=== PATIENT | male | born 1930 | race Caucasian/White ===

== ENCOUNTER 2017-01-10 12:43 | Emergency (ER) | payer BC ==
[~2017-01-10] VITALS: Ht 172.7 cm; Wt 67.9 kg
[~2017-01-10 12:43] MED LIST: AMOX500C3 PO; CLOP1TAB15 PO
[2017-01-10 12:51] VITALS: TEMP 36.5; Ht 172.7 cm; Wt 67.9 kg
[2017-01-10] MEDS ORDERED: LIDOCAINE/EPINEPH/TETRACAINE 1 EA SYR EXT STA ×2 (13:26)
--- NOTE | 2017-01-10 13:27 | EMERGENCY ROOM VISIT NOTE ---
History Report prepared by Rosa Elena: Eduardo Rodriguez Under the Supervision of: Dr. Tawanda Penn D.O. First contact with patient: 13:18 Chief Complaint: FALL Stated Complaint: FALL;INJURY TO HEAD History of Present Illness The patient is an 86 year old male who presents to the Emergency Room with complaints of a sudden mechanical fall that occurred prior to arrival today. He says that he was going to sit down on his commode, but he fell and landed on his right side. The right side of his head hit the sink. He has resulting lacerations on his head, right elbow, and right hip. The patient is currently experiencing right shoulder pain and a bit of right hip pain. He states that his head is currently stiff, but he denies any loss of consciousness, chest pain , shortness of breath, low back pain, or leg pain. The patient has been walking fine with a cane after the fall. He takes blood thinners daily. His last tetanus shot is up to date (a year ago). Source of History: patient, family Onset: Prior to arrival today Position: other (global - mechanical fall) Timing: other (sudden) Associated Symptoms: No LOC, No SOB, No back pain Note: Associated symptoms: Right shoulder and hip pain. Lacerations on head, right elbow, right hip. Denies any leg pain. Review of Systems See HPI for pertinent positives & negatives. A total of 10 systems reviewed and were otherwise negative. Past Medical & Surgical Medical Problems: (1) CVA (cerebral vascular accident) (2) Diabetes (3) Hyperlipidemia (4) Kidney disease (5) Stroke Family History Patient reports no known family medical history. Social History Smoking Status: Former Smoker Alcohol Use: none Drug Use: none Marital Status: Housing Status: lives with family Occupation Status: retired Current/Historical Medications Scheduled Allopurinol (Zyloprim), 100 MG PO DAILY Carbidopa/Levodopa (Sinemet 25MG/100MG), 1 TAB PO TID Dipyridamole/Aspirin (Aggrenox 25-200 mg), 1 CAP PO DAILY Dutasteride (Avodart), 0.5 MG PO DAILY Famotidine (Pepcid), 2 TAB PO DAILY Metoprolol Tartrate (Lopressor) (Lopressor), 25 MG PO DAILY Multiple Vitamin (Multivitamin), 1 TAB PO DAILY Pravastatin (Pravachol ), 10 MG PO DAILY Sertraline HCl (Sertraline HCl), 50 MG PO DAILY Allergies Coded Allergies: Ezetimibe (Verified Allergy, Unknown, ., 01/10/17) Simvastatin (Verified Adverse Reaction, Intermediate, ALL STATINS-N&V,WT AND APPETITE LOSS, 01/10/17) ALL STATINS - N&V,WT AND APPETITE LOSS Physical Exam Vital Signs Date Time Temp Pulse Resp B/P Pulse Ox O2 Delivery O2 Flow Rate FiO2 01/10/17 15:33 73 20 137/68 97 01/10/17 14:51 64 18 134/62 96 Room Air 01/10/17 12:51 36.5 76 18 146/58 96 Room Air Physical Exam GENERAL: Patient is awake, alert, and in no acute distress. Patient is resting comfortably and showing no signs of anxiety EYES: The conjunctivae are clear. The pupils are round and reactive. EARS, NOSE, MOUTH AND THROAT: Mucous membranes moist. Small laceration to right parietal scalp, no active bleeding noted. NECK: Diffuse tenderness to palpation noted but no step-offs noted. Range of motion appeared intact. RESPIRATORY: Normal respiratory effort is noted there is no evidence of wheezing rhonchi or rales CARDIOVASCULAR: Regular rate and rhythm noted there no murmurs rubs or gallops normal S1 normal S2 GASTROINTESTINAL: The abdomen is soft. Bowel sounds are present in all quadrants. Abdomen is nontender BACK: No midline tenderness or or step-off noted range of motion in flexion extension as well as rotation no signs of muscle spasm noted MUSCULOSKELETAL/EXTREMITIES: Abrasion with tenderness over lateral right elbow. Range of motion appeared intact. There is also a contusion noted on the right lateral hip, tenderness was noted to palpation. Range of motion appeared intact. SKIN: There is no obvious evidence of any rash. There are no petechiae, pallor or cyanosis noted. NEUROLOGIC: Patient is awake alert and oriented x3. Medical Decision & Procedures ER Provider Diagnostic Interpretation: Radiology results as stated below per my review and radiologist interpretation: RIGHT PELVIS/UNILATERAL HIP 2-3VIEWS CLINICAL HISTORY: fall Right trauma. Pain. COMPARISON: None. DISCUSSION: The bones and joint spaces appear intact. There is no evidence of fracture, dislocation or bony disease. There is no evidence for soft tissue swelling. IMPRESSION: Negative study. No acute process of the pelvis or right hip Electronically signed by: Kevin Barry M.D. 01/10/2017 2:57 PM Dictated Date/Time: 01/10/2017 2:[address]AST CT DOSE: 638.56 mGycm HISTORY: Trauma fall TECHNIQUE: Multiaxial CT images of the head were performed without the use of intravenous contrast. Comparison: 05/16/2016 Findings: The paranasal sinuses and mastoid air cells are clear. Old left occipital infarct. No acute intracranial hemorrhage. No new or interval finding compared to the prior study. Impression: Chronic change. No acute process. Electronically signed by: Kevin Barry M.D. 01/10/2017 2:17 PM Dictated Date/Time: 01/10/2017 2:16 PM RIGHT ELBOW MIN 3 VIEWS ROUTINE CLINICAL HISTORY: fall Right trauma. Pain. COMPARISON: None. DISCUSSION: The bones and joint spaces appear intact. There is no evidence of fracture, dislocation or bony disease. There is no evidence for soft tissue swelling. IMPRESSION: Negative study. Electronically signed by: Kevin Barry M.D. 01/10/2017 2:59 PM Dictated Date/Time: 01/10/2017 2:59 PM CHEST 2 VIEWS ROUTINE CLINICAL HISTORY: fall trauma COMPARISON STUDY: No previous studies for comparison. FINDINGS: The bones soft tissues and hemidiaphragms are normal. The cardiomediastinal silhouette is normal. The lungs are clear. The pulmonary vasculature is normal. IMPRESSION: Negative chest. Electronically signed by: Kevin Barry M.D. 01/10/2017 2:58 PM Dictated Date/Time: 01/10/2017 2:[address] SCAN OF THE CERVICAL SPINE CLINICAL HISTORY: Fall. COMPARISON STUDY: No priors. TECHNIQUE: CT scan of the cervical spine is performed from the skull base to the upper thoracic spine. Images are reviewed in the axial, sagittal, and coronal planes. IV contrast was not administered for this examination. CT DOSE: 434.61 mGycm FINDINGS: Skeletal structures: The skeletal structures are osteopenic. There is no evidence of fracture or subluxation involving the cervical spine. Vertebral body height and alignment are maintained. The odontoid process and lateral masses are intact. The atlantoaxial articulation is preserved noting advanced productive degenerative change. The spinous processes appear intact. Anterior osteophytes are seen from C3 through C6. There is moderate multilevel cervical spondylosis. Uncovertebral and facet arthropathy contribute to foraminal narrowing at several levels. Intervertebral discs: There is advanced degenerative disc space narrowing at C5-C6. Mild disc space narrowing is seen at the remaining cervical levels. Central canal: Posterior disc osteophyte complexes at C4-C5, C5-C6, and C6-C7 likely contribute to acquired compromise of the central canal. Soft tissues: The prevertebral and paraspinous soft tissues are within normal limits. Atherosclerotic calcification is seen in the carotid bulbs. Calvarium: The visualized calvarium at the skull base appears intact. Brain parenchyma: Partially visualized brain parenchyma the skull base is within normal limits. Sinuses and mastoids: The visualized paranasal sinuses are clear. There is a left mastoid effusion. The right mastoid air cells are well pneumatized. Lung apices: Clear as visualized. IMPRESSION: 1. There is no evidence of fracture or subluxation involving the cervical spine. 2. Osteopenia and spondylotic change as above. Electronically signed by: King Noonan M.D. 01/10/2017 2:32 PM Dictated Date/Time: 01/10/2017 2:18 PM Medications Administered Medications (Trade) Dose Ordered Sig/Jose Route Start Time Stop Time Status Last Admin Dose Admin Tetracaine/ Epinephrine/ Lidocaine (L.e.t. Gel 4%/ 1:100/0.5%) 1 ea UD STAT EXT 01/10/17 13:26 01/10/17 13:28 DC 01/10/17 13:48 1 EA Tetracaine/ Epinephrine/ Lidocaine (L.e.t. Gel 4%/ 1:100/0.5%) 1 ea UD STAT EXT 01/10/17 13:26 01/10/17 13:28 DC 01/10/17 13:49 1 EA Procedure Location: Right parietal scalp Total length: 1 centimeter Complexity: Low Verbal consent was obtained after the risks and benefits were explained, including but not limited to bleeding, scarring, infection, pain, and bone/joint /nerve damage. At this time, the risks of the procedure are less than the risks of NOT performing the procedure. A time out was taken and the correct patient and site identified. The skin was prepped with normal saline solution. The target area was anesthetized with let gel. Copious irrigation was performed using normal saline solution. The skin was re-prepped with normal saline solution and a sterile field set. The wound was explored for foreign bodies and none found. Debridement was not performed. The wound edges were approximated using 2 skin marily. Hemostasis and excellent approximation was achieved. Detailed wound care instructions and signs and symptoms of infection reviewed with the patient and his family members. No complications and the patient tolerated the procedure well. ED Course 1320: The patient was evaluated in room A9B. A complete history and physical examination were performed. 1326: Ordered L.e.t. Gel 4%/1:100/0.5% 1 ea EXT. 1504: Upon reevaluation, the patient is resting comfortably. I put marily in the patient's head. I discussed the results and treatment plan with him. He verbalized agreement of the treatment plan. He was discharged home. Medical Decision Prior records/ancillary studies reviewed. Triage Nursing notes reviewed. Differential diagnosis: Etiologies such as fracture, dislocation, intra-abdominal, pneumothorax, intrathoracic , intracranial, neurologic, as well as other traumatic pathologies were entertained. The patient is an 86-year-old male who fell while lowering herself to the toilet. He fell onto his right side sustaining a small laceration to his right forehead as well as an injury to his right elbow and right hip. The patient's radiographic studies did not reveal any acute bony abnormalities or any acute intracranial process. The patient had the wound on his right elbow cleaned and dressed with triple in about appointment. He had the wound on his forehead stapled. I discussed the patient's radial graphic studies with him and his family members. He's been encouraged to rest and avoid any strenuous activity. He's also been encouraged to continue all medications as prescribed and follow- up with his family doctor soon as possible. Otherwise he was encouraged to return the emergency Department immediately if symptoms change worsen or need arises. Impression Primary Impression: Fall Additional Impressions: Head injury Scalp laceration Contusion of right elbow Contusion of right hip Scribe Attestation The scribe's documentation has been prepared under my direction and personally reviewed by me in its entirety. I confirm that the note above accurately reflects all work, treatment, procedures, and medical decision making performed by me. Departure Information Dispostion Home / Self-Care Referrals Jairo Solis M.D. (PCP) Forms HOME CARE DOCUMENTATION FORM, IMPORTANT VISIT INFORMATION Patient Instructions ED Head Injury Closed, ED Laceration Scalp Stitch Or Stap, My [facility] Additional Instructions Continue using Tylenol for pain. Rest and avoid any strenuous activity. Follow- up with your family for reevaluation and for staple removals in 7-10 days. Return to the emergency department immediately if signs of head injury develop. Problem Qualifiers Primary Impression: Fall Encounter type: initial encounter Qualified Codes: W19.XXXA - Unspecified fall, initial encounter Additional Impressions: Head injury Encounter type: initial encounter Qualified Codes: S09.90XA - Unspecified injury of head, initial encounter Scalp laceration Encounter type: initial encounter Qualified Codes: S01.01XA - Laceration without foreign body of scalp, initial encounter Contusion of right elbow Encounter type: initial encounter Qualified Codes: S50.01XA - Contusion of right elbow, initial encounter Contusion of right hip Encounter type: initial encounter Qualified Codes: S70.01XA - Contusion of right hip, initial encounter
--- NOTE | 2017-01-10 14:18 | DIAGNOSTIC IMAGING REPORT ---
HEAD CT NONCONTRAST CT DOSE: 638.56 mGycm HISTORY: Trauma fall TECHNIQUE: Multiaxial CT images of the head were performed without the use of intravenous contrast. Comparison: 05/16/2016 Findings: The paranasal sinuses and mastoid air cells are clear. Old left occipital infarct. No acute intracranial hemorrhage. No new or interval finding compared to the prior study. Impression: Chronic change. No acute process. Electronically signed by: Kevin Barry M.D. 01/10/2017 2:17 PM Dictated Date/Time: 01/10/2017 2:16 PM
--- NOTE | 2017-01-10 14:33 | DIAGNOSTIC IMAGING REPORT ---
CT SCAN OF THE CERVICAL SPINE CLINICAL HISTORY: Fall. COMPARISON STUDY: No priors. TECHNIQUE: CT scan of the cervical spine is performed from the skull base to the upper thoracic spine. Images are reviewed in the axial, sagittal, and coronal planes. IV contrast was not administered for this examination. CT DOSE: 434.61 mGycm FINDINGS: Skeletal structures: The skeletal structures are osteopenic. There is no evidence of fracture or subluxation involving the cervical spine. Vertebral body height and alignment are maintained. The odontoid process and lateral masses are intact. The atlantoaxial articulation is preserved noting advanced productive degenerative change. The spinous processes appear intact. Anterior osteophytes are seen from C3 through C6. There is moderate multilevel cervical spondylosis. Uncovertebral and facet arthropathy contribute to foraminal narrowing at several levels. Intervertebral discs: There is advanced degenerative disc space narrowing at C5-C6. Mild disc space narrowing is seen at the remaining cervical levels. Central canal: Posterior disc osteophyte complexes at C4-C5, C5-C6, and C6-C7 likely contribute to acquired compromise of the central canal. Soft tissues: The prevertebral and paraspinous soft tissues are within normal limits. Atherosclerotic calcification is seen in the carotid bulbs. Calvarium: The visualized calvarium at the skull base appears intact. Brain parenchyma: Partially visualized brain parenchyma the skull base is within normal limits. Sinuses and mastoids: The visualized paranasal sinuses are clear. There is a left mastoid effusion. The right mastoid air cells are well pneumatized. Lung apices: Clear as visualized. IMPRESSION: 1. There is no evidence of fracture or subluxation involving the cervical spine. 2. Osteopenia and spondylotic change as above. Electronically signed by: King Noonan M.D. 01/10/2017 2:32 PM Dictated Date/Time: 01/10/2017 2:18 PM
--- NOTE | 2017-01-10 14:59 | DIAGNOSTIC IMAGING REPORT ---
RIGHT PELVIS/UNILATERAL HIP 2-3VIEWS CLINICAL HISTORY: fall Right trauma. Pain. COMPARISON: None. DISCUSSION: The bones and joint spaces appear intact. There is no evidence of fracture, dislocation or bony disease. There is no evidence for soft tissue swelling. IMPRESSION: Negative study. No acute process of the pelvis or right hip Electronically signed by: Kevin Barry M.D. 01/10/2017 2:57 PM Dictated Date/Time: 01/10/2017 2:57 PM
--- NOTE | 2017-01-10 15:00 | DIAGNOSTIC IMAGING REPORT ---
CHEST 2 VIEWS ROUTINE CLINICAL HISTORY: fall trauma COMPARISON STUDY: No previous studies for comparison. FINDINGS: The bones soft tissues and hemidiaphragms are normal. The cardiomediastinal silhouette is normal. The lungs are clear. The pulmonary vasculature is normal. IMPRESSION: Negative chest. Electronically signed by: Kevin Barry M.D. 01/10/2017 2:58 PM Dictated Date/Time: 01/10/2017 2:58 PM
--- NOTE | 2017-01-10 15:01 | DIAGNOSTIC IMAGING REPORT ---
RIGHT ELBOW MIN 3 VIEWS ROUTINE CLINICAL HISTORY: fall Right trauma. Pain. COMPARISON: None. DISCUSSION: The bones and joint spaces appear intact. There is no evidence of fracture, dislocation or bony disease. There is no evidence for soft tissue swelling. IMPRESSION: Negative study. Electronically signed by: Kevin Barry M.D. 01/10/2017 2:59 PM Dictated Date/Time: 01/10/2017 2:59 PM
[2017-01-10 15:33] VITALS: BP 137/68; PULSE 73; O2SAT 97
[2017-01-18] MEDS ORDERED: METO25TA56 PO (12:38)
[2017-01-18] MEDS ORDERED: PRAV20TA PO (12:38)
[2017-01-18] MEDS ORDERED: AGG PO (14:53)
== END 2017-01-10 15:35 | disposition home or self-care (01) ==
LOC: C.EDB 12:45 → C.EDA 15:35
DX: S01.01XA Laceration without foreign body of scalp, initial encounter (principal); S50.01XA Contusion of right elbow, initial encounter; S70.01XA Contusion of right hip, initial encounter; M25.511 Pain in right shoulder; E11.9 Type 2 diabetes mellitus without complications; E78.5 Hyperlipidemia, unspecified; N18.9 Chronic kidney disease, unspecified; Z79.82 Long term (current) use of aspirin; Z79.899 Other long term (current) drug therapy; Z86.73 Personal history of transient ischemic attack (TIA), and cerebral infarction without residual deficits; Z87.891 Personal history of nicotine dependence; W18.12XA Fall from or off toilet with subsequent striking against object, initial encounter

== ENCOUNTER 2017-01-18 16:22 | Emergency (ER) | payer BC ==
[~2017-01-18] VITALS: Ht 172.7 cm; Wt 67.4 kg
[~2017-01-18 16:22] MED LIST changes: -ALLO100T PO; -CARB25TA12 PO; -DUTA0.5C PO; -FAMO20TA9 PO; -HYDR-5688 PO; -MULTTAB58 PO; -XLTOPS OPR; -ZLF/50 PO
[2017-01-18 16:28] VITALS: TEMP 36.4; Ht 172.7 cm; Wt 67.4 kg
--- NOTE | 2017-01-18 16:35 | EMERGENCY ROOM VISIT NOTE ---
ED Visit Note First contact with patient: 16:34 CHIEF COMPLAINT: Staple removal HISTORY OF PRESENT ILLNESS: This 86-year-old male in patient returns to the ED today for removal of marily that were placed 8 days ago. There has been no swelling, redness, or drainage from the wound. The patient feels like the laceration is healing well. The patient makes note that his right leg has been persistently very painful. He states that he has been using his walker but rates his pain greater than 10/10. The patient states that he is having difficulty moving the right leg because of pain. He denies any pain at the hip. He states that he is occasionally having low back pain he states that over the last 2 days he has had urinary incontinence. He states that he is not able to control his urine and urinates himself without realizing it. He has never had trouble with incontinence in the past and not prior to the fall last week. The patient denies any prior back pain or problem. He denies any fevers or chills. He denies any abdominal pain, nausea or vomiting. REVIEW OF SYSTEMS: A 10 system review of systems was completed with positives and pertinent negatives listed in the HPI. PMH: Unchanged from previous visit. ALLERGIES: simvastatin, ezetimibe PHYSICAL EXAM: Vital Signs: Reviewed Nurse's notes, vital signs stable. GENERAL : this is an 86 year oldmale, in no acute distress. SKIN: There is a stapled wound on the scalp with no signs of infection. There is no erythema, swelling, or tenderness. HEENT: Head is normocephalic and atraumatic. Pupils equal round reactive to light. NECK: The cervical spine is nontender. Range of motion is full and supple CARDIAC: Regular rate and rhythm. LUNGS: Clear to auscultation bilaterally. ABDOMEN: There is no tenderness to palpation of the abdomen. Bowel sounds are present 4 quadrants. MUSCULOSKELETAL: There is minimal tenderness to palpation to the lumbar spine. There is no tenderness to palpation to the right hip or the pelvis. The patient has full range of motion at the hip. The patient has significant difficulty picking his leg up into the bed. Sensation is intact in the bilateral lower extremities. Deep tendon reflexes are 2+ in the lower extremities bilaterally. EMERGENCY DEPARTMENT COURSE: 2 marily were removed without any difficulty and there was no separation of the wound edges. The patient initially presented for staple removal and this was done without difficulty. He also stated that he has had persistent and severe pain in the right lower leg. He has also had some low back pain. Of most concern, the patient states he has had urinary incontinence. He states that he is unable to hold it in. Therefore, an MRI of the lumbar spine was obtained. This was reviewed by myself and radiology and does not reveal any significant finding, specifically no evidence for cauda equina. Given the patient's severe discomfort, CT imaging of the pelvis and right hip were also obtained. There is right hip effusion but no obvious fracture. He does not have a fever, leukocytosis. He does not have any significant electrolyte abnormality. There is no evidence for urinary tract infection. This potentially represents a bursitis, ligamentous injury, soft tissue injury or even occult fracture. The patient was given a total 4 mg IV morphine with improvement in his pain. He was placed on a very small prescription for Latham. He should contact orthopedics first thing in the morning to schedule a follow- up appointment for further evaluation and management. He should return to the ER with any worsening symptoms. The patient was also seen and examined by who agrees with the assessment and treatment plan. Medication Reconciliation: I attest that I have personally reviewed the patient' s current medication list. Blood pressure screening: The patient was found to have normal blood pressure on screening and does not require follow-up DIFFERENTIAL DIAGNOSIS: Lumbar strain, degenerative disc disease, spondylolisthesis, herniated disc, spinal stenosis, osteoporosis, fracture, cauda equina syndrome, neoplasm, infection, inflammatory arthritis, among others. PELVIS AND RIGHT HIP CT CT DOSE: 601.14 mGy.cm HISTORY: fall, pelvic and right hip pain TECHNIQUE: Multiaxial CT images of the pelvis and right hip were performed and reformatted in the sagittal and coronal plane without the use of contrast. COMPARISON: Pelvis and right hip 01/10/2017. FINDINGS: No fracture or dislocation within the pelvis or hips. The sacrum appears intact. Colonic diverticulosis. Trace right hip effusion. IMPRESSION: 1. No fracture or dislocation within the pelvis or hips. 2. Trace right hip effusion. PELVIS AND RIGHT HIP CT CT DOSE: 601.14 mGy.cm HISTORY: fall, pelvic and right hip pain TECHNIQUE: Multiaxial CT images of the pelvis and right hip were performed and reformatted in the sagittal and coronal plane without the use of contrast. COMPARISON: Pelvis and right hip 01/10/2017. FINDINGS: No fracture or dislocation within the pelvis or hips. The sacrum appears intact. Colonic diverticulosis. Trace right hip effusion. IMPRESSION: 1. No fracture or dislocation within the pelvis or hips. 2. Trace right hip effusion. LUMBAR SPINE MRI HISTORY: right leg pain, urinary incontinence, fall TECHNIQUE: Multiplanar multisequence MRI of the lumbar spine was performed without the use of contrast. COMPARISON: None. FINDINGS: For the purpose of the report the L5-S1 disc space will be located on axial image 27 of 36.. Alignment is intact. No acute fractures within the lumbar spine. Small endplate indentations with minimal endplate edema at the L2-L3 levels favor Schmorl's nodes. There are also Schmorl's nodes at the L4-L5 level. There is a left-sided IVC. Paraspinal soft tissues are unremarkable. The conus terminates at the L1 level. Mild disc space narrowing at L2-L3 and L4-L5. L1-L2: No significant central canal or neural foraminal narrowing. L2-L3: Tiny broad-based posterior disc bulge. No central canal narrowing. No significant neural foraminal narrowing. L3-L4: Tiny broad-based posterior disc bulge. No significant central canal or neural foraminal narrowing. L4-L5: Tiny broad-based posterior disc bulge. No significant central canal or neural foraminal narrowing. L5-S1: No significant central canal or neural foraminal narrowing. IMPRESSION: 1. No acute fracture or subluxation within the lumbar spine. 2. Mild degenerative disease as described above. No significant central canal or neural foraminal narrowing. No disc herniations identified. 3. Small endplate indentations with minimal endplate edema at the L2-L3 levels favor Schmorl's nodes. Problem List Medical Problems: (1) Stroke Status: Chronic Current/Historical Medications Scheduled Allopurinol (Zyloprim), 100 MG PO DAILY Carbidopa/Levodopa (Sinemet 25MG/100MG), 1 TAB PO TID Dipyridamole/Aspirin (Aggrenox 25-200 mg), 1 CAP PO BID Dutasteride (Avodart), 0.5 MG PO DAILY Famotidine (Pepcid), 1 TAB PO DAILY Latanoprost (Latanoprost), 1 DROP OPR DAILY Metoprolol Tartrate (Lopressor) (Lopressor), 25 MG PO DAILY Multiple Vitamin (Multivitamin), 1 TAB PO DAILY Pravastatin (Pravachol ), 10 MG PO DAILY Sertraline HCl (Sertraline HCl), 25 MG PO DAILY Scheduled PRN Hydrocodone/Acetaminophen 5MG/325MG (Latham 5MG/325MG), 0.5-1 TABLET PO Q6 PRN for Pain Allergies Coded Allergies: Ezetimibe (Verified Allergy, Unknown, ., 01/10/17) Simvastatin (Verified Adverse Reaction, Intermediate, ALL STATINS-N&V,WT AND APPETITE LOSS, 01/10/17) ALL STATINS - N&V,WT AND APPETITE LOSS Vital Signs Date Time Temp Pulse Resp B/P (MAP) Pulse Ox O2 Delivery O2 Flow Rate FiO2 01/18/17 20:30 78 20 136/70 98 01/18/17 18:33 87 18 140/82 97 Room Air 01/18/17 16:28 36.4 86 18 134/67 95 Room Air Laboratory Results 01/18/17 17:05 Red Blood Count 4.33, Mean Corpuscular Volume 92.4, Mean Corpuscular Hemoglobin 30.9, Mean Corpuscular Hemoglobin Concent 33.5, Mean Platelet Volume 8.8, Neutrophils (%) (Auto) 62.3, Lymphocytes (%) (Auto) 22.1, Monocytes (%) (Auto) 12.7, Eosinophils (%) (Auto) 2.2, Basophils (%) (Auto) 0.3, Neutrophils # (Auto ) 6.16, Lymphocytes # (Auto) 2.19, Monocytes # (Auto) 1.26, Eosinophils # (Auto ) 0.22, Basophils # (Auto) 0.03 01/18/17 17:05 Test 01/18/17 17:05 01/18/17 18:46 White Blood Count 9.90 K/uL (4.8-10.8) Red Blood Count 4.33 M/uL (4.7-6.1) Hemoglobin 13.4 g/dL (14.0-18.0) Hematocrit 40.0 % (42-52) Mean Corpuscular Volume 92.4 fL (80-100) Mean Corpuscular Hemoglobin 30.9 pg (25-34) Mean Corpuscular Hemoglobin Concent 33.5 g/dl (32-36) Platelet Count 200 K/uL (130-400) Mean Platelet Volume 8.8 fL (7.4-10.4) Neutrophils (%) (Auto) 62.3 % Lymphocytes (%) (Auto) 22.1 % Monocytes (%) (Auto) 12.7 % Eosinophils (%) (Auto) 2.2 % Basophils (%) (Auto) 0.3 % Neutrophils # (Auto) 6.16 K/uL (1.4-6.5) Lymphocytes # (Auto) 2.19 K/uL (1.2-3.4) Monocytes # (Auto) 1.26 K/uL (0.11-0.59) Eosinophils # (Auto) 0.22 K/uL (0-0.5) Basophils # (Auto) 0.03 K/uL (0-0.2) RDW Standard Deviation 43.3 fL (36.4-46.3) RDW Coefficient of Variation 12.8 % (11.5-14.5) Immature Granulocyte % (Auto) 0.4 % Immature Granulocyte # (Auto) 0.04 K/uL (0.00-0.02) Anion Gap 7.0 mmol/L (3-11) Est Creatinine Clear Calc Drug Dose 33.7 ml/min Estimated GFR () 48.2 Estimated GFR (Non- 41.6 BUN/Creatinine Ratio 14.1 (10-20) Calcium Level 8.8 mg/dl (8.5-10.1) Total Bilirubin 0.7 mg/dl (0.2-1) Aspartate Amino Transf (AST/SGOT) 19 U/L (15-37) Alanine Aminotransferase (ALT/SGPT) 9 U/L (12-78) Alkaline Phosphatase 72 U/L (45-117) Total Protein 7.2 gm/dl (6.4-8.2) Albumin 3.4 gm/dl (3.4-5.0) Globulin 3.8 gm/dl (2.5-4.0) Albumin/Globulin Ratio 0.9 (0.9-2) Urine Color YELLOW Urine Appearance CLEAR (CLEAR) Urine pH 6.5 (4.5-7.5) Urine Specific [place] 1.011 (1.000-1.030) Urine Protein NEG (NEG) Urine Glucose (UA) NEG (NEG) Urine Ketones NEG (NEG) Urine Occult Blood NEG (NEG) Urine Nitrite NEG (NEG) Urine Bilirubin NEG (NEG) Urine Urobilinogen NEG (NEG) Urine Leukocyte Esterase NEG (NEG) Medications Administered Medications (Trade) Dose Ordered Sig/Jose Route Start Time Stop Time Status Last Admin Dose Admin Morphine Sulfate (MoRPHine SULFATE INJ) 2 mg NOW STAT IV 01/18/17 18:32 01/18/17 18:33 DC 01/18/17 18:44 2 MG Morphine Sulfate (MoRPHine SULFATE INJ) 2 mg NOW STAT IV 01/18/17 19:56 01/18/17 19:57 DC 01/18/17 20:07 2 MG Acetaminophen/ Hydrocodone Bitart ([place]atham 5/325mg Home Pack) 1 homepack UD ONCE PO 01/18/17 20:00 01/18/17 20:01 DC 01/18/17 20:06 1 HOMEPACK Departure Information Impression Primary Impression: Encounter for removal of marily Additional Impressions: Right hip joint effusion Right leg pain Fall Back pain with radiation Dispostion Home / Self-Care Condition GOOD Prescriptions Hydrocodone/Acetaminophen 5MG/325MG ([place] 5MG/325MG) Tab 0.5-1 TABLET PO Q6 Y for Pain, #12 TAB For Initial Treatment Prov: Elis Penn PA-C 01/18/17 Referrals No Doctor, Assigned (PCP) Jairo Calhoun, DO Patient Instructions ED Sprain Hip, [facility], Trochanteric Bursitis Additional Instructions Wash any remaining crusts off of the wound today and resume your normal activities. Rest off your feet for 1 to 2 days, ice for 24 hrs then heat to the low back. Contact orthopedics tomorrow for a follow up appointment for further evaluation and management. Latham 0.5-1 tablet every 6 hrs for severe pain. No driving or alcohol use with Latham . Return with fever, abdominal pain, vomiting or if you develop any worsening pain, fevers, numbness/tingling or generalized worsening symptoms Problem Qualifiers
[2017-01-18] MEDS ORDERED: XLTOPS OPR (17:02)
[2017-01-18 17:14] LABS: BASO % 0.3 %; BASO ABS # 0.03 K/uL (0-0.2); COMPLETE YES; EOS % 2.2 %; IG% 0.4 %; LYMPH % 22.1 %; LYMPH ABS # 2.19 K/uL (1.2-3.4); MEAN CELL VOLUME 92.4 fL (80-100); MEAN CORPUSCULAR HEMOGLOBIN 30.9 pg (25-34); MEAN CORPUSCULAR HGB CONC 33.5 g/dl (32-36); MEAN PLATELET VOLUME 8.8 fL (7.4-10.4); MONO % 12.7 %; NEUT % 62.3 %; PLATELET COUNT 200 K/uL (130-400); RED BLOOD COUNT 4.33 M/uL (4.7-6.1)
[2017-01-18 17:32] LABS: BUN/CREATININE RATIO 14.1 (10-20); CALCIUM 8.8 mg/dl (8.5-10.1); CREATININE 1.5 mg/dl (0.60-1.40); POTASSIUM 4.3 mmol/L (3.5-5.1)
[2017-01-18 17:34] LABS: ALB/GLOB RATIO 0.9 (0.9-2)
[2017-01-18] MEDS ORDERED: CARB25TA12 PO (18:14)
[2017-01-18] MEDS ORDERED: ZLF/50 PO (18:14)
[2017-01-18] MEDS ORDERED: FAMO20TA9 PO (18:14)
[2017-01-18] MEDS ORDERED: MoRPHine SULFATE 2 MG/ML CARP IV STA ×2 (18:32→19:56)
--- NOTE | 2017-01-18 18:36 | DIAGNOSTIC IMAGING REPORT ---
LUMBAR SPINE MRI HISTORY: right leg pain, urinary incontinence, fall TECHNIQUE: Multiplanar multisequence MRI of the lumbar spine was performed without the use of contrast. COMPARISON: None. FINDINGS: For the purpose of the report the L5-S1 disc space will be located on axial image 27 of 36.. Alignment is intact. No acute fractures within the lumbar spine. Small endplate indentations with minimal endplate edema at the L2-L3 levels favor Schmorl's nodes. There are also Schmorl's nodes at the L4-L5 level. There is a left-sided IVC. Paraspinal soft tissues are unremarkable. The conus terminates at the L1 level. Mild disc space narrowing at L2-L3 and L4-L5. L1-L2: No significant central canal or neural foraminal narrowing. L2-L3: Tiny broad-based posterior disc bulge. No central canal narrowing. No significant neural foraminal narrowing. L3-L4: Tiny broad-based posterior disc bulge. No significant central canal or neural foraminal narrowing. L4-L5: Tiny broad-based posterior disc bulge. No significant central canal or neural foraminal narrowing. L5-S1: No significant central canal or neural foraminal narrowing. IMPRESSION: 1. No acute fracture or subluxation within the lumbar spine. 2. Mild degenerative disease as described above. No significant central canal or neural foraminal narrowing. No disc herniations identified. 3. Small endplate indentations with minimal endplate edema at the L2-L3 levels favor Schmorl's nodes. Electronically signed by: Shane Rodríguez M.D. 01/18/2017 6:35 PM Dictated Date/Time: 01/18/2017 6:29 PM
[2017-01-18 19:02] LABS: URINE APPEARANCE CLEAR (CLEAR); URINE BILIRUBIN NEG (NEG); URINE COLOR YELLOW; URINE NITRITE NEG (NEG); URINE PH 6.5 (4.5-7.5); URINE SPECIFIC GRAVITY 1.011 (1.000-1.030); UROBILINOGEN NEG (NEG); ZZUR CULT IF INDIC CLEAN CATCH NO
[2017-01-18 19:08] LABS: MANUAL MICROSCOPIC REQUIRED? NO; REVIEW REQ? NO
--- NOTE | 2017-01-18 19:34 | DIAGNOSTIC IMAGING REPORT ---
PELVIS AND RIGHT HIP CT CT DOSE: 601.14 mGy.cm HISTORY: fall, pelvic and right hip pain TECHNIQUE: Multiaxial CT images of the pelvis and right hip were performed and reformatted in the sagittal and coronal plane without the use of contrast. COMPARISON: Pelvis and right hip 01/10/2017. FINDINGS: No fracture or dislocation within the pelvis or hips. The sacrum appears intact. Colonic diverticulosis. Trace right hip effusion. IMPRESSION: 1. No fracture or dislocation within the pelvis or hips. 2. Trace right hip effusion. Electronically signed by: Shane Rodríguez M.D. 01/18/2017 7:33 PM Dictated Date/Time: 01/18/2017 7:28 PM
--- NOTE | 2017-01-18 19:57 | EMERGENCY ROOM VISIT NOTE ---
ED Visit Note First contact with patient: 16:34 Patient was seen by our PA/[employer] OPERATIONS SPECIALIST. I was involved in the patient's care and did evaluate the patient myself. I was involved in the care throughout the ER stay. The patient presents with complaints of some back pain and hip and pelvis pain since falling. Laboratory testing is unrevealing. Urinalysis does not show infection. An MRI of the back was done, no acute surgical pathology. No significant spinal stenosis. CTs of the pelvis and hip were done, no fractures seen. The patient is being referred to orthopedics. He does appear stable for discharge. He was encouraged to return for worsening symptoms or lack of improvement.
[2017-01-18] MEDS ORDERED: HYDR-5688 PO (20:00)
[2017-01-18] MEDS ORDERED: NORCO 5/325MG HOME PACK PO ONE (20:00)
[2017-01-18] MEDS ORDERED: MULTTAB58 PO (20:09)
[2017-01-18] MEDS ORDERED: ALLO100T PO (20:09)
[2017-01-18] MEDS ORDERED: DUTA0.5C PO (20:09)
[2017-01-18 20:30] VITALS: BP 136/70; PULSE 78; O2SAT 98
== END 2017-01-18 20:30 | disposition home or self-care (01) ==
LOC: C.EDB 16:23 → C.EDD 20:30
DX: S01.01XD Laceration without foreign body of scalp, subsequent encounter (principal); W19.XXXD Unspecified fall, subsequent encounter; M25.451 Effusion, right hip; M79.604 Pain in right leg; M54.5 Low back pain; R32 Unspecified urinary incontinence; I12.9 Hypertensive chronic kidney disease with stage 1 through stage 4 chronic kidney disease, or unspecified chronic kidney disease; N18.3 Chronic kidney disease, stage 3 (moderate); N25.81 Secondary hyperparathyroidism of renal origin; E55.9 Vitamin D deficiency, unspecified; Z86.73 Personal history of transient ischemic attack (TIA), and cerebral infarction without residual deficits

== ENCOUNTER → 2017-01-18 | Outpatient (CLI) | payer BC ==
[~2017-01-18] MED LIST changes: +AGG PO; +ALLO100T PO; -AMOX500C3 PO; +CARB25TA12 PO; -CLOP1TAB15 PO; +DUTA0.5C PO; +FAMO20TA9 PO; +HYDR-5688 PO; +METO25TA56 PO; +MULTTAB58 PO; +PRAV20TA PO; +XLTOPS OPR; +ZLF/50 PO
[2017-01-18 12:14] LABS: HEMATOCRIT 41.6 % (42-52); MEAN CELL VOLUME 93.5 fL (80-100); MEAN CORPUSCULAR HEMOGLOBIN 32.6 pg (25-34); MEAN CORPUSCULAR HGB CONC 34.9 g/dl (32-36); MEAN PLATELET VOLUME 9.6 fL (7.4-10.4); PLATELET COUNT 201 K/uL (130-400); RED BLOOD COUNT 4.45 M/uL (4.7-6.1); WHITE BLOOD COUNT 9.47 K/uL (4.8-10.8)
[2017-01-18 12:20] LABS: REVIEW REQ? NO; URINE APPEARANCE CLEAR (CLEAR); URINE BILIRUBIN NEG (NEG); URINE COLOR YELLOW; URINE NITRITE NEG (NEG); URINE PH 7.5 (4.5-7.5); URINE SPECIFIC GRAVITY 1.016 (1.000-1.030); UROBILINOGEN NEG (NEG)
[2017-01-18 12:21] LABS: MANUAL MICROSCOPIC REQUIRED? NO
[2017-01-18 12:23] LABS: BLOOD UREA NITROGEN 19 mg/dl (7-18); BUN/CREATININE RATIO 11.9 (10-20); CARBON DIOXIDE 26 mmol/L (21-32); CHLORIDE 97 mmol/L (98-107); GLUCOSE 90 mg/dl (70-99); PHOSPHORUS 2.4 mg/dl (2.5-4.9); POTASSIUM 4.1 mmol/L (3.5-5.1); SODIUM 132 mmol/L (136-145)
[2017-01-18 13:16] LABS: URINE PROTIEN/CREAT RATIO 0.1 (0-0.2); URINE TOTAL PROTEIN 22.3 mg/dl (0-11.9)
== END | disposition home or self-care (01) ==
LOC: C.LABBFT 10:01
PROVIDERS: ATTEND Internal Medicine Nephrology
DX: I12.9 Hypertensive chronic kidney disease with stage 1 through stage 4 chronic kidney disease, or unspecified chronic kidney disease (principal); N18.3 Chronic kidney disease, stage 3 (moderate); N25.81 Secondary hyperparathyroidism of renal origin; E55.9 Vitamin D deficiency, unspecified

== ENCOUNTER → 2017-06-01 | Outpatient (CLI) | payer BC ==
[~2017-06-01] MED LIST changes: +ALLO100T PO; +CARB25TA12 PO; +DUTA0.5C PO; +FAMO20TA9 PO; +HYDR-5688 PO; +MULTTAB58 PO; +XLTOPS OPR; +ZLF/50 PO
[2017-06-01 12:30] LABS: URINE APPEARANCE CLEAR (CLEAR); URINE BILIRUBIN NEG (NEG); URINE COLOR YELLOW; URINE EPITHELIAL CELL AUTO 0-5 /lpf (0-5); URINE NITRITE NEG (NEG); URINE PH 7.5 (4.5-7.5); URINE SPECIFIC GRAVITY 1.017 (1.000-1.030); UROBILINOGEN NEG (NEG)
[2017-06-01 12:33] LABS: MANUAL MICROSCOPIC REQUIRED? NO; REVIEW REQ? NO
[2017-06-01 12:41] LABS: HEMATOCRIT 42.9 % (42-52); MEAN CELL VOLUME 92.9 fL (80-100); MEAN CORPUSCULAR HEMOGLOBIN 32.3 pg (25-34); MEAN CORPUSCULAR HGB CONC 34.7 g/dl (32-36); MEAN PLATELET VOLUME 9.6 fL (7.4-10.4); PLATELET COUNT 167 K/uL (130-400); RED BLOOD COUNT 4.62 M/uL (4.7-6.1); WHITE BLOOD COUNT 6.68 K/uL (4.8-10.8)
[2017-06-01 13:17] LABS: BLOOD UREA NITROGEN 19 mg/dl (7-18); BUN/CREATININE RATIO 12.4 (10-20); CALCIUM 8.6 mg/dl (8.5-10.1); CARBON DIOXIDE 26 mmol/L (21-32); CHLORIDE 104 mmol/L (98-107); GLUCOSE 89 mg/dl (70-99); PHOSPHORUS 2.9 mg/dl (2.5-4.9); POTASSIUM 4.2 mmol/L (3.5-5.1); SODIUM 137 mmol/L (136-145)
[2017-06-01 13:53] LABS: URINE PROTIEN/CREAT RATIO 0.1 (0-0.2); URINE TOTAL PROTEIN 14.3 mg/dl (0-11.9)
== END | disposition home or self-care (01) ==
LOC: C.LABBFT 08:25
PROVIDERS: ATTEND Internal Medicine Nephrology
DX: I10 Essential (primary) hypertension (principal); N18.3 Chronic kidney disease, stage 3 (moderate); N25.81 Secondary hyperparathyroidism of renal origin; E55.9 Vitamin D deficiency, unspecified

== ENCOUNTER → 2017-08-02 | Day surgery (SDC) | payer BC ==
[2017-06-05 13:41] VITALS: Ht 172.7 cm; Wt 68.2 kg
--- NOTE | 2017-06-21 13:39 | History and Physical: Surg Cnt ---
History & Physical Date Jun 21, 2017. Chief Complaint Preoperative clearance for left eye cataract surgery History of Present Illness Patient is an 86 y.o. male w/multiple medical problems. 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 He also has a h /o DM, HLD, Parkinson's disease, CKD stage III, secondary hyperparathyroidism, right carotid artery stenosis, HTN, BPH with a h/o bladder CA s/p surgery, gout , and vitamin-D deficiency. He is also former smoker but quit > 30 years ago. Presents for preoperative clearance for left eye cataract surgery scheduled on 06/26/[address] Machado. The only other surgery he has had is right eye cataract surgery. He has no personal or family history of thromboembolic complications. He has been experiencing some allergy symptoms to include mild rhinitis and nasal congestion and a very occasional dry cough. Denies fever, chills, SOB, chest pain, chest tightness, wheezing, abdominal pain, nausea, vomiting, changes in his bowel or bladder function, headaches, or a bleeding disorder. Past Medical/Surgical History prior TIA and CVA with right sided hemeparesis, DM, HLD, Parkinson's disease, CKD stage III, secondary hyperparathyroidism, right carotid artery stenosis, HTN , BPH with a h/o bladder CA s/p surgery, gout, and vitamin-D deficiency Additional History Hepatic Disease: No Endocrine Disorder: Yes Kidney Disease: Yes Hypertension: Yes Heart Disease: No Bleeding Tendencies: No Infectious Diseases: No Allergies Coded Allergies: Ezetimibe (Verified Allergy, Unknown, ., 06/05/17) Simvastatin (Verified Adverse Reaction, Intermediate, ALL STATINS-N&V,WT AND APPETITE LOSS, 06/05/17) ALL STATINS - N&V,WT AND APPETITE LOSS Home Medications Scheduled Allopurinol (Zyloprim), 100 MG PO DAILY Dipyridamole/Aspirin (Aggrenox 25-200 mg), 1 CAP PO BID Dutasteride (Avodart), 0.5 MG PO DAILY Famotidine (Pepcid), 2 MG PO DAILY Latanoprost (Latanoprost), 1 DROP OPR DAILY Metoprolol Tartrate (Lopressor) (Lopressor), 25 MG PO DAILY Multiple Vitamin (Multivitamin), 1 TAB PO DAILY Pravastatin (Pravachol ), 10 MG PO DAILY Sertraline HCl (Sertraline HCl), 50 MG PO HS Social History Smoking Status: Former Smoker Alcohol Use: none Physical Examination Skin: warm/dry, no rash Eyes: normal inspection, sclerae normal ENT: normal ENT inspection, pharynx normal Head: normocephalic, atraumatic Neck: supple, no adenopathy, trachea midline Respiratory/Chest: lungs clear, normal breath sounds, no respiratory distress Cardiovascular: regular rate, rhythm Abdomen / GI: normal bowel sounds Back: normal inspection Extremities: normal inspection Neurologic/Psych: alert Addiitonal Comments: Patient is an 86-year-old male with multiple medical problems who presents for preoperative surgery. He is scheduled for left eye cataract surgery on [address] Machado. He has been cleared for surgery from a medical standpoint as there is no absolute contraindication in he is considered an acceptable risk. Diagnosis Preoperative clearance Left eye cataract Operation Left eye cataract surgery
--- NOTE | 2017-07-11 16:15 | History and Physical: Surg Cnt ---
History & Physical Date Jul 11, 2017. (Kristin Sepulveda PA-C) History of Present Illness Patient is an 86 y.o. male w/multiple medical problems. 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 He also has a h /o DM, HLD, Parkinson's disease, CKD stage III, secondary hyperparathyroidism, right carotid artery stenosis, HTN, BPH with a h/o bladder CA s/p surgery, gout , and vitamin-D deficiency. He is also former smoker but quit > 30 years ago. He presents for preoperative clearance for left eye cataract surgery scheduled on 08/02/[address] Machado. The only other surgery he has had is right eye cataract surgery. He was to have this surgery on 06/26/2017 but it was rescheduled because he did not have the right eye drops prior to surgery. He has no personal or family history of thromboembolic complications. He complains today of heartburn x2 weeks despite treatment with generic Pepcid 20 mg daily. He does admit to increased stress associated with his who has mild Alzheimer's disease. He does however admit that he has also been eating some spicy foods. He has been taking OTC antacids and they have been affective. The remainder of his ROS was negative. Denies abdominal pain, nausea, vomiting, dysphagia, cough, fever, chills, SOB, chest pain, bladder changes, headaches, bleeding problems, or skin changes. . 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 He also has a h/o DM, HLD, Parkinson's disease, CKD stage III, secondary hyperparathyroidism, right carotid artery stenosis, HTN, BPH with a h/ o bladder CA s/p surgery, gout, and vitamin-D deficiency. (Kristin Sepulveda PA-C) Additional History Hepatic Disease: No Endocrine Disorder: Yes Kidney Disease: Yes Hypertension: Yes Heart Disease: No Bleeding Tendencies: No Infectious Diseases: No (Kristin Sepulveda PA-C) Allergies Coded Allergies: Ezetimibe (Verified Allergy, Unknown, ., 06/05/17) Atorvastatin (Verified Adverse Reaction, Intermediate, ALL STATINS-N&V,WT AND APPETITE LOSS, 06/22/17) Cerivastatin (Verified Adverse Reaction, Intermediate, ALL STATINS-N&V,WT AND APPETITE LOSS, 06/22/17) Fluvastatin (Verified Adverse Reaction, Intermediate, ALL STATINS-N&V,WT AND APPETITE LOSS, 06/22/17) Lovastatin (Verified Adverse Reaction, Intermediate, ALL STATINS-N&V,WT AND APPETITE LOSS, 06/22/17) Pitavastatin (Verified Adverse Reaction, Intermediate, ALL STATINS-N&V,WT AND APPETITE LOSS, 06/22/17) Pravastatin (Verified Adverse Reaction, Intermediate, ALL STATINS-N&V,WT AND APPETITE LOSS, 06/22/17) Rosuvastatin (Verified Adverse Reaction, Intermediate, ALL STATINS-N&V,WT AND APPETITE LOSS, 06/22/17) Simvastatin (Verified Adverse Reaction, Intermediate, ALL STATINS-N&V,WT AND APPETITE LOSS, 06/05/17) ALL STATINS - N&V,WT AND APPETITE LOSS Home Medications Scheduled Allopurinol (Zyloprim), 100 MG PO DAILY Dipyridamole/Aspirin (Aggrenox 25-200 mg), 1 CAP PO BID Dutasteride (Avodart), 0.5 MG PO DAILY Famotidine (Pepcid), 2 MG PO DAILY Latanoprost (Latanoprost), 1 DROP OPR DAILY Metoprolol Tartrate (Lopressor) (Lopressor), 25 MG PO DAILY Multiple Vitamin (Multivitamin), 1 TAB PO DAILY Pravastatin (Pravachol ), 10 MG PO DAILY Sertraline HCl (Sertraline HCl), 50 MG PO HS Social History Smoking Status: Former Smoker Alcohol Use: none (Kristin Sepulveda, FRANDY) Physical Examination Skin: warm/dry, no rash Head: normocephalic, atraumatic Neck: supple, no adenopathy, trachea midline Respiratory/Chest: lungs clear, normal breath sounds, no respiratory distress Cardiovascular: regular rate, rhythm, no edema, no murmur Abdomen / GI: normal bowel sounds, non tender Back: normal inspection Extremities: normal inspection, normal range of motion Neurologic/Psych: alert, oriented x 3 Addiitonal Comments: Patient is an 86 y.o. male w/multiple medical problems who presents for preoperative clearance for left eye cataract surgery on 08/02/[address] Machado. From a medical standpoint he is cleared for left eye cataract surgery as there is no absolute contraindication and he is considered an acceptable risk. (Kristin Sepulveda PA-C) Diagnosis Preoperative exam Left eye cataract (Kristin Sepulveda PA-C)
[~2017-08-02] VITALS: Ht 172.7 cm; Wt 68.2 kg
[~2017-08-02] MED LIST changes: +500ML BSS 0.3ML EPI 1:1000PF IRRIG ONE; +ACETAMINOPHEN 325 MG TAB PO PRN; +AMVISC PLUS 0.8ML SYRINGE INT OCU ONE; +ATROPINE SULFATE 0.1 MG/ML 5ML SYR IV PRN; +BSS FLUSH ONE; -CARB25TA12 PO; +CYCLOPENTOLATE HCL 1% OP SOLN PER DROP CHARGE OPL SCH; +EpHEDrine SULFATE INJ 50 MG/ML AMP IV PRN; +EpINEphrine INJ 1MG/ML AMP 1 MG/ML AMP ONE; +GATIFLOXACIN OP SOLN PER DROP CHARGE OPL SCH; -HYDR-5688 PO; +KETOROLAC 0.5% OP SOLN PER DROP CHARGE OPL SCH; +LACTATED RINGER'S 1000ML 500 ML IV SCH; +LIDOCAINE 3.5% OPH GEL PER APPLICATION CHARGE ONE; +LIDOCAINE HCL 1% MPF 2 ML VIAL ONE; +MIDAZOLAM HCL 1 MG/ML 2ML VIAL ONE; +OCUCOAT 1 ML SOLN IO ONE; +ONDANSETRON INJ 2 MG/ML 2 ML VIAL IV PRN; +PHENYLEPHRINE HCL 2.5% OP SOLN PER DROP CHARGE OPL SCH; +POVIDONE-IODINE OP SOLN 30 ML BTL ONE; +PROPARACAINE 0.5% OP SOLN PER DROP CHARGE OPL SCH; +TOBRAMYCIN/DEXAMETHASONE OPH OINT PER APPLN CHARGE ONE; +TROPICAMIDE 1% OP SOLN PER DROP CHARGE OPL SCH
[2017-08-02] MEDS: PHENYLEPHRINE HCL 2.5% OP SOLN PER DROP CHARGE OPL SCH ×2 (10:36→10:41)
[2017-08-02] MEDS: CYCLOPENTOLATE HCL 1% OP SOLN PER DROP CHARGE OPL SCH ×2 (10:38→10:43)
[2017-08-02] MEDS: TROPICAMIDE 1% OP SOLN PER DROP CHARGE OPL SCH ×2 (10:38→10:42)
[2017-08-02] MEDS: KETOROLAC 0.5% OP SOLN PER DROP CHARGE OPL SCH ×2 (10:39→10:44)
[2017-08-02] MEDS: GATIFLOXACIN OP SOLN PER DROP CHARGE OPL SCH ×2 (10:40→10:52)
--- NOTE | 2017-08-02 10:53 | History & Physical Bridge - SC ---
H&P Re-Evaluation Bridge Note: I have examined the patient, reviewed the History & Physical and in the interval since the performance of the History & Physical I have noted the following changes of clinical significance: No changes noted
--- NOTE | 2017-08-02 11:40 | Discharge Instructions-SurgCtr ---
Discharge Instructions Date of Service Aug 02, 2017. Visit Reason for Visit: Left Cataract Discharge Discharge Diagnosis / Problem: cataract Discharge Goals Goal(s): Improve function Activity Recommendations Activity Limitations: per Instructions/Follow-up section Anesthesia . Post Anesthesia Instructions: If you have had General Anesthesia or IV Sedation: * Do not drive today. * Resume driving when surgeon permits. * Do not make important decisions or sign legal documents today. * Call surgeon for: 1. Temperature elevations greater than 101 degrees F. 2. Uncontrollable pain. 3. Excessive bleeding. 4. Persistent nausea and vomiting. 5. Medication intolerance (nausea, vomiting or rash). * For nausea and vomiting use only clear liquids such as: tea, soda, bouillon until nausea subsides, then gradually increase diet as tolerated. * If you have any concerns or questions, call your surgeon's office. If physician is unavailable and it is an emergency, call 911 or go to the nearest emergency room. . Diet Recommendations Home Diet: resume previous diet Procedures Procedures Performed: Left Cataract Phacoemulsification With Intraocular Lens Implant Pending Studies Studies pending at discharge: no Medical Emergencies . Who to Call and When: Medical Emergencies: If at any time you feel your situation is an emergency, please call 911 immediately. . Non-Emergent Contact Non-Emergency issues call your: Customer Service Leader . . "Provider Documentation" section prepared by Javad Machado. .
[2017-08-02 11:41] VITALS: TEMP 36.8
--- NOTE | 2017-08-02 11:41 | [facility] Operative Report ---
Operative Report Date of Service Aug 02, 2017. Operative Report 1. PREOPERATIVE DIAGNOSIS: Cataract of the left eye. 2. POSTOPERATIVE DIAGNOSIS: Same. 3. PROCEDURE: Phacoemulsification with intraocular lens implantation of the left eye. SURGEON: Dr. Javad Machado. ANESTHESIA: Topical Lidocaine gel, 1% Non- Preserved intracameral Lidocaine, and monitored intravenous sedation. INDICATIONS FOR THE PROCEDURE: The patient is a 86 - year-old male with a history of cataract of the left eye causing significant visual impairment. The details of the proposed procedure were explained to the patient who asked appropriate questions and following discussion of all risks, benefits and alternatives agreed to have the procedure done. 4. OPERATION AND FINDINGS: DESCRIPTION OF PROCEDURE: After informed consent was obtained, the patient was brought to the Operating Room at the [facility]. The patient was placed in a supine position and then the left eye was prepped and draped in the usual sterile fashion for intraocular surgery. A drop of topical Lidocaine gel was placed in the operative eye. A wire lid speculum was then placed in the fornices. A corneal paracentesis was then created temporally. The Non-Preserved Lidocaine was then instilled into the anterior chamber. The anterior chamber was then pressurized with viscoelastic. A 2.0 mm clear corneal incision was then created temporally. A cystotome was inserted into the anterior chamber and used to create a tear in the anterior lens capsule. This capsular tear was then used to create a small flap and the flap was dragged in a counterclockwise direction in order to create a continuous curvilinear capsulorrhexis. Hydrodissection was accomplished with balanced salt solution. Phacoemulsification of the lens nucleus was then performed in a standard [id number] technique. The phaco time was 24 seconds with an average power of 17 %. The remaining cortical material was removed using irrigation aspiration. The capsular bag was then filled with viscoelastic. A [employer] [id number] +20.5 diopters lens was then loaded into the injector and injected into the capsular bag. The remaining viscoelastic was removed with the irrigation aspiration handpiece. The wound was hydrated and then checked and found to be watertight. The intraocular pressure was checked and found to be adequate. The wire lid speculum was removed and the patient's face was cleaned and dried. TobraDex ointment was placed in the inferior fornix. The patient was discharged to the Recovery Room having tolerated the procedure well. There were no complications. The patient will be seen tomorrow in the office for follow-up. I attest to the content of the Intraoperative Record and any orders documented therein. Any exceptions are noted below.
--- NOTE | 2017-08-02 11:53 | Anesthesia Progress Nt - [facility] ---
Anesthesia Post Op Note Date & Time Aug 02, 2017 at 11:53 Vital Signs Pain Intensity: 0 Vital Signs Past 12 Hours Date Time Temp Pulse Resp B/P (MAP) Pulse Ox O2 Delivery O2 Flow Rate FiO2 08/02/17 10:32 36.3 69 16 129/64 (85) 98 Room Air Notes Mental Status: alert / awake / arousable, participated in evaluation Pt Amnestic to Procedure: Yes Nausea / Vomiting: adequately controlled Pain: adequately controlled Airway Patency, RR, SpO2: stable & adequate BP & HR: stable & adequate Hydration State: stable & adequate Anesthetic Complications: no major complications apparent
[2017-08-02 12:07] VITALS: BP 125/59; PULSE 61; O2SAT 98
== END | disposition home or self-care (01) ==
LOC: X.SURG 10:15
PROVIDERS: ATTEND Ophthalmology
DX: H26.9 Unspecified cataract (principal); E11.36 Type 2 diabetes mellitus with diabetic cataract; I12.9 Hypertensive chronic kidney disease with stage 1 through stage 4 chronic kidney disease, or unspecified chronic kidney disease; N18.3 Chronic kidney disease, stage 3 (moderate); E78.5 Hyperlipidemia, unspecified; G20 Parkinson's disease; F02.81 Dementia in other diseases classified elsewhere, unspecified severity, with behavioral disturbance; E55.9 Vitamin D deficiency, unspecified; N25.81 Secondary hyperparathyroidism of renal origin; I65.21 Occlusion and stenosis of right carotid artery; N40.0 Benign prostatic hyperplasia without lower urinary tract symptoms; M10.9 Gout, unspecified; Z87.891 Personal history of nicotine dependence; I69.351 Hemiplegia and hemiparesis following cerebral infarction affecting right dominant side; Z79.899 Other long term (current) drug therapy; K21.9 Gastro-esophageal reflux disease without esophagitis

== ENCOUNTER 2017-10-10 11:14 | Emergency (ER) | payer BC ==
[~2017-10-10] VITALS: Ht 172.7 cm; Wt 68.3 kg
[~2017-10-10 11:14] MED LIST changes: -500ML BSS 0.3ML EPI 1:1000PF IRRIG ONE; -ACETAMINOPHEN 325 MG TAB PO PRN; -AMVISC PLUS 0.8ML SYRINGE INT OCU ONE; -ATROPINE SULFATE 0.1 MG/ML 5ML SYR IV PRN; -BSS FLUSH ONE; -CYCLOPENTOLATE HCL 1% OP SOLN PER DROP CHARGE OPL SCH; -EpHEDrine SULFATE INJ 50 MG/ML AMP IV PRN; -EpINEphrine INJ 1MG/ML AMP 1 MG/ML AMP ONE; -GATIFLOXACIN OP SOLN PER DROP CHARGE OPL SCH; -KETOROLAC 0.5% OP SOLN PER DROP CHARGE OPL SCH; -LACTATED RINGER'S 1000ML 500 ML IV SCH; -LIDOCAINE 3.5% OPH GEL PER APPLICATION CHARGE ONE; -LIDOCAINE HCL 1% MPF 2 ML VIAL ONE; -MIDAZOLAM HCL 1 MG/ML 2ML VIAL ONE; -OCUCOAT 1 ML SOLN IO ONE; -ONDANSETRON INJ 2 MG/ML 2 ML VIAL IV PRN; -PHENYLEPHRINE HCL 2.5% OP SOLN PER DROP CHARGE OPL SCH; -POVIDONE-IODINE OP SOLN 30 ML BTL ONE; -PROPARACAINE 0.5% OP SOLN PER DROP CHARGE OPL SCH; -TOBRAMYCIN/DEXAMETHASONE OPH OINT PER APPLN CHARGE ONE; -TROPICAMIDE 1% OP SOLN PER DROP CHARGE OPL SCH
[2017-10-10 11:18] VITALS: Ht 172.7 cm; Wt 68.3 kg
[2017-10-10] MEDS ORDERED: SODIUM CHLORIDE 0.9% 1000ML 1,000 ML IV STA (11:32)
[2017-10-10 12:04] LABS: BASO % 0.5 %; BASO ABS # 0.03 K/uL (0-0.2); EOS % 2.7 %; EOS ABS # 0.15 K/uL (0-0.5); HEMOGLOBIN 13.5 g/dL (14.0-18.0); IG# 0.02 K/uL (0.00-0.02); LYMPH % 9.9 %; LYMPH ABS # 0.55 K/uL (1.2-3.4); MEAN CELL VOLUME 92.4 fL (80-100); MEAN CORPUSCULAR HGB CONC 34.6 g/dl (32-36); MEAN PLATELET VOLUME 8.7 fL (7.4-10.4); MONO % 8.6 %; MONO ABS # 0.48 K/uL (0.11-0.59); NEUT % 77.9 %; NEUT ABS # 4.34 K/uL (1.4-6.5); PLATELET COUNT 127 K/uL (130-400); RED CELL DISTRIBUTION WIDTH CV 13.2 % (11.5-14.5); RED CELL DISTRIBUTION WIDTH SD 44.5 fL (36.4-46.3); WHITE BLOOD COUNT 5.57 K/uL (4.8-10.8)
[2017-10-10 12:22] LABS: ALBUMIN 3.3 gm/dl (3.4-5.0); ALT/SGPT 17 U/L (12-78); AST/SGOT 20 U/L (15-37); BLOOD UREA NITROGEN 18 mg/dl (7-18); CALCIUM 8.3 mg/dl (8.5-10.1); CARBON DIOXIDE 26 mmol/L (21-32); CREATININE 1.77 mg/dl (0.60-1.40); GLUCOSE 95 mg/dl (70-99); LIPASE 148 U/L (73-393); POTASSIUM 3.7 mmol/L (3.5-5.1); SODIUM 133 mmol/L (136-145)
[2017-10-10 12:24] LABS: INFLUENZA B ANTIGEN Neg for Influ B (NEG)
[2017-10-10 12:27] LABS: ALKALINE PHOSPHATASE 63 U/L (45-117)
[2017-10-10] MEDS ORDERED: OSELTAMIVIR PHOSPHATE 75 MG CAP PO STA (12:27)
--- NOTE | 2017-10-10 12:58 | DIAGNOSTIC IMAGING REPORT ---
CHEST 2 VIEWS ROUTINE CLINICAL HISTORY: cough dyspnea COMPARISON STUDY: 01/10/2017 FINDINGS: The bones soft tissues and hemidiaphragms are normal. The cardiomediastinal silhouette is normal. The lungs are clear. The pulmonary vasculature is normal. IMPRESSION: Negative chest. The above report was generated using voice recognition software. It may contain grammatical, syntax or spelling errors. Electronically signed by: Kevin Barry M.D. 10/10/2017 12:57 PM Dictated Date/Time: 10/10/2017 12:56 PM
[2017-10-10 13:12] VITALS: TEMP 37.4
[2017-10-10] MEDS ORDERED: OSEL30CA PO (13:37)
[2017-10-10 14:15] VITALS: BP 160/83; PULSE 78; O2SAT 96
--- NOTE | 2017-10-10 16:50 | EMERGENCY ROOM VISIT NOTE ---
History Report prepared by Rosa Elena: Mina Newton Under the Supervision of: Dr. Cipriano Serrano D.O. First contact with patient: 11:21 Chief Complaint: FLU LIKE SX Stated Complaint: FLU LIKE SX History of Present Illness The patient is a 86 year old male who presents to the Emergency Room with complaints of moderate flu-like symptoms that began 1 day ago. He has a past medical history of a pervious stroke. Over this time, the patient has had a multitude of symptoms including a fever, cough, body aches, and a lessened appetite. He has not eaten since lunch yesterday. He states that his cough is not productive. But occasionally he will cough so hard that he feels short of breath, which resolves when he stops coughing. He has also been experiencing generalized weakness as well. He was nauseated yesterday, but denies any nausea today. His fever has been as high as 102.5 F. Pt denies headache, change in vision, sore throat, chest pain, shortness of breath, nausea, vomiting, abdominal pain, diarrhea, pain with urination, and melena. He denies any redness or open sores as well. He denies any known flu-like sick contacts. Source of History: patient, family Onset: yesterday Position: other (global) Symptom Intensity: moderate Quality: other (Flu-like symptoms) Timing: constant Associated Symptoms: + fevers, + cough, + weakness (generalized), No headache, No sorethroat, No chest pain, No SOB, No nausea, No vomiting, No abdominal pain, No melena, No diarrhea, No urinary symptoms Note: He has been experiencing body aches and a lessened appetite as well. Review of Systems See HPI for pertinent positives & negatives. A total of 10 systems reviewed and were otherwise negative. Past Medical & Surgical Medical Problems: (1) CVA (cerebral vascular accident) (2) Diabetes (3) Hyperlipidemia (4) Kidney disease (5) Stroke Family History Patient reports no known family medical history. Social History Smoking Status: Never Smoker Alcohol Use: none Drug Use: none Marital Status: Housing Status: lives with family Occupation Status: retired Current/Historical Medications Scheduled Allopurinol (Zyloprim), 100 MG PO DAILY Dipyridamole/Aspirin (Aggrenox 25-200 mg), 1 CAP PO BID Dutasteride (Avodart), 0.5 MG PO DAILY Famotidine (Pepcid), 20 MG PO DAILY Latanoprost (Latanoprost), 1 DROP OPR DAILY Metoprolol Tartrate (Lopressor) (Lopressor), 25 MG PO DAILY Multiple Vitamin (Multivitamin), 1 TAB PO DAILY Oseltamivir Phosphate (Tamiflu), 1 CAP PO DAILY Pravastatin (Pravachol ), 10 MG PO DAILY Sertraline HCl (Sertraline HCl), 50 MG PO HS Allergies Coded Allergies: Ezetimibe (Verified Allergy, Unknown, ., 10/10/17) Atorvastatin (Verified Adverse Reaction, Intermediate, ALL STATINS-N&V,WT AND APPETITE LOSS, 10/10/17) Cerivastatin (Verified Adverse Reaction, Intermediate, ALL STATINS-N&V,WT AND APPETITE LOSS, 10/10/17) Fluvastatin (Verified Adverse Reaction, Intermediate, ALL STATINS-N&V,WT AND APPETITE LOSS, 10/10/17) Lovastatin (Verified Adverse Reaction, Intermediate, ALL STATINS-N&V,WT AND APPETITE LOSS, 10/10/17) Pitavastatin (Verified Adverse Reaction, Intermediate, ALL STATINS-N&V,WT AND APPETITE LOSS, 10/10/17) Pravastatin (Verified Adverse Reaction, Intermediate, ALL STATINS-N&V,WT AND APPETITE LOSS, 10/10/17) Rosuvastatin (Verified Adverse Reaction, Intermediate, ALL STATINS-N&V,WT AND APPETITE LOSS, 10/10/17) Simvastatin (Verified Adverse Reaction, Intermediate, ALL STATINS-N&V,WT AND APPETITE LOSS, 10/10/17) ALL STATINS - N&V,WT AND APPETITE LOSS Physical Exam Vital Signs Date Time Temp Pulse Resp B/P (MAP) Pulse Ox O2 Delivery O2 Flow Rate FiO2 10/10/17 14:15 78 18 160/83 96 10/10/17 13:12 37.4 84 18 138/67 96 Room Air 10/10/17 11:18 37.1 100 20 112/53 94 Room Air Physical Exam GENERAL: Sitting up in bed with a dry nonproductive cough, alert, well appearing , well nourished, no distress, non-toxic EYE EXAM: normal conjunctiva. PERRL and EOM's intact. OROPHARYNX: no exudate, no erythema, lips, buccal mucosa, and tongue normal and mucous membranes are moist NECK: supple, no nuchal rigidity, no adenopathy, non-tender LUNGS: Clear to auscultation. Normal chest wall mechanics HEART: no murmurs, S1 normal and S2 normal ABDOMEN: abdomen soft, non-tender, normo-active bowel sounds, no masses, no rebound or guarding. BACK: Back is symmetrical on inspection and there is no deformity, no midline tenderness, no CVA tenderness. SKIN: no rashes and no bruising UPPER EXTREMITIES: upper extremities are grossly normal. LOWER EXTREMITIES: No pitting edema. Weakness in the RLE with flexion and extension of hip which is old per the patient. Otherwise no focal deficits. NEURO EXAM: Normal sensorium, cranial nerves II-XII grossly intact, normal speech, no gross weakness of arms, no gross weakness of legs, with exception to the RLE. Medical Decision & Procedures ER Provider Diagnostic Interpretation: Radiology results as stated below per my review and the radiologist's interpretation: CHEST 2 VIEWS ROUTINE CLINICAL HISTORY: cough dyspnea COMPARISON STUDY: 01/10/2017 FINDINGS: The bones soft tissues and hemidiaphragms are normal. The cardiomediastinal silhouette is normal. The lungs are clear. The pulmonary vasculature is normal. IMPRESSION: Negative chest. The above report was generated using voice recognition software. It may contain grammatical, syntax or spelling errors. Electronically signed by: Kevin Barry M.D. 10/10/2017 12:57 PM Dictated Date/Time: 10/10/2017 12:56 PM Laboratory Results 10/10/17 11:47 Red Blood Count 4.22, Mean Corpuscular Volume 92.4, Mean Corpuscular Hemoglobin 32.0, Mean Corpuscular Hemoglobin Concent 34.6, Mean Platelet Volume 8.7, Neutrophils (%) (Auto) 77.9, Lymphocytes (%) (Auto) 9.9, Monocytes (%) (Auto) 8.6, Eosinophils (%) (Auto) 2.7, Basophils (%) (Auto) 0.5, Neutrophils # (Auto) 4.34, Lymphocytes # (Auto) 0.55, Monocytes # (Auto) 0.48, Eosinophils # (Auto) 0.15, Basophils # (Auto) 0.03 10/10/17 11:47 Test 10/10/17 11:45 10/10/17 11:47 Influenza Type A Antigen POS for Influ A (NEG) Influenza Type B Antigen Neg for Influ B (NEG) White Blood Count 5.57 K/uL (4.8-10.8) Red Blood Count 4.22 M/uL (4.7-6.1) Hemoglobin 13.5 g/dL (14.0-18.0) Hematocrit 39.0 % (42-52) Mean Corpuscular Volume 92.4 fL (80-100) Mean Corpuscular Hemoglobin 32.0 pg (25-34) Mean Corpuscular Hemoglobin Concent 34.6 g/dl (32-36) Platelet Count 127 K/uL (130-400) Mean Platelet Volume 8.7 fL (7.4-10.4) Neutrophils (%) (Auto) 77.9 % Lymphocytes (%) (Auto) 9.9 % Monocytes (%) (Auto) 8.6 % Eosinophils (%) (Auto) 2.7 % Basophils (%) (Auto) 0.5 % Neutrophils # (Auto) 4.34 K/uL (1.4-6.5) Lymphocytes # (Auto) 0.55 K/uL (1.2-3.4) Monocytes # (Auto) 0.48 K/uL (0.11-0.59) Eosinophils # (Auto) 0.15 K/uL (0-0.5) Basophils # (Auto) 0.03 K/uL (0-0.2) RDW Standard Deviation 44.5 fL (36.4-46.3) RDW Coefficient of Variation 13.2 % (11.5-14.5) Immature Granulocyte % (Auto) 0.4 % Immature Granulocyte # (Auto) 0.02 K/uL (0.00-0.02) Anion Gap 8.0 mmol/L (3-11) Est Creatinine Clear Calc Drug Dose 28.9 ml/min Estimated GFR () 39.4 Estimated GFR (Non- 34.0 BUN/Creatinine Ratio 10.0 (10-20) Calcium Level 8.3 mg/dl (8.5-10.1) Total Bilirubin 0.5 mg/dl (0.2-1) Direct Bilirubin 0.1 mg/dl (0-0.2) Aspartate Amino Transf (AST/SGOT) 20 U/L (15-37) Alanine Aminotransferase (ALT/SGPT) 17 U/L (12-78) Alkaline Phosphatase 63 U/L (45-117) Troponin I < 0.015 ng/ml (0-0.045) Total Protein 7.0 gm/dl (6.4-8.2) Albumin 3.3 gm/dl (3.4-5.0) Lipase 148 U/L (73-393) Laboratory results per my review. Medications Administered Medications (Trade) Dose Ordered Sig/Jose Route Start Time Stop Time Status Last Admin Dose Admin Sodium Chloride 1,000 ml @ 999 mls/hr Q1H1M STAT IV 10/10/17 11:32 10/10/17 12:32 DC 10/10/17 11:52 999 MLS/HR Oseltamivir Phosphate (Tamiflu Cap) 75 mg NOW STAT PO 10/10/17 12:27 10/10/17 12:28 DC 10/10/17 12:38 75 MG ED Course ED COURSE: Vital signs were reviewed and showed tachycardia The patients medical record was reviewed The above diagnostic studies were performed and reviewed. ED treatments and interventions as stated above. 1121: The patient was evaluated in room C5. A complete history and physical examination was performed. 1132: Ordered Sodium Chloride 1000 ml @ 999 mls/hr IV 1227: Tamiflu Cap 30 mg PO 1309: The patient feels better and would like to go home. 1330: I confirmed the patient's Tamiflu dosage with pharmacy at this time who recommended 30 mg. 1350: Upon reevaluation, the patient is resting.I discussed my findings with the patient and he understands and agrees with the treatment plan. Based on the patients age, coexisting illnesses, exam and lab findings the decision to treat as an inpatient was made. The patient remained stable while under my care. The patient appeared well at the time of discharge. Medical Decision Differential diagnosis: Etiologies such as viral syndrome, otitis, pharyngitis, pneumonia, influenza, meningitis, urinary tract infection, sepsis, bacteremia, as well as others were entertained. Patient is an 86-year-old male who presented to ER for cough, diffuse myalgias and fevers. CBC along with BMP shows a slightly elevated creatinine at baseline. Bilirubin along with LFTs, troponin lipase is normal. Patient was positive for influenza A. Chest x-ray unremarkable. Patient was given fluids. He was afebrile with normal vitals while in the ER. He notes he is feeling well and would like to go home. I felt this was reasonable. I gave him Tamiflu and strict instructions to return to the ER. Discussed with Pt concerning signs and symptoms to watch out for. Pt was instructed to follow up with their PCP and discussed with the patient their option to return to the ED at anytime for persistent or worsening symptoms. The appropriate anticipatory guidance and out-patient management, including indications for return to the emergency department, were explained at length to the patient and understood. Medication Reconcilliation Current Medication List: was personally reviewed by me Blood Pressure Screening Patient's blood pressure: Normal blood pressure Blood pressure disposition: Did not require urgent referral Impression Primary Impression: Influenza Scribe Attestation The scribe's documentation has been prepared under my direction and personally reviewed by me in its entirety. I confirm that the note above accurately reflects all work, treatment, procedures, and medical decision making performed by me. Departure Information Dispostion Home / Self-Care Prescriptions Oseltamivir Phosphate (TAMIFLU) 30 Mg Cap 1 CAP PO DAILY for 5 Days, #5 CAP Prov: Cipriano Serrano, DO 10/10/17 Referrals Jairo Solis M.D. (PCP) Forms HOME CARE DOCUMENTATION FORM, IMPORTANT VISIT INFORMATION Patient Instructions My [facility], Oseltamivir capsules, Rapid Influenza Antigen Nasal or Throat Swab Additional Instructions Please follow up with your primary care doctor with in the next 24 hours. Any worsening of your symptoms, please return to the ED immediately. This includes any fevers greater than 100.4, worsening pain, chest pain, shortness breath, persistent nausea, vomiting, unable to eat or drink, or any other concerning signs or symptoms from your standpoint. Please try to remain as hydrated as possible. Please take Tamiflu as prescribed.
== END 2017-10-10 14:26 | disposition home or self-care (01) ==
LOC: C.EDB 11:15 → C.EDC 14:26
DX: J10.1 Influenza due to other identified influenza virus with other respiratory manifestations (principal); R00.0 Tachycardia, unspecified; E11.9 Type 2 diabetes mellitus without complications; E78.5 Hyperlipidemia, unspecified; Z86.73 Personal history of transient ischemic attack (TIA), and cerebral infarction without residual deficits; Z88.8 Allergy status to other drugs, medicaments and biological substances

== ENCOUNTER → 2017-11-29 | Outpatient (CLI) | payer BC ==
[2017-11-29 12:38] LABS: HEMATOCRIT 44.9 % (42-52); HEMOGLOBIN 14.9 g/dL (14.0-18.0); MEAN CELL VOLUME 93.9 fL (80-100); MEAN CORPUSCULAR HEMOGLOBIN 31.2 pg (25-34); MEAN CORPUSCULAR HGB CONC 33.2 g/dl (32-36); MEAN PLATELET VOLUME 9.4 fL (7.4-10.4); PLATELET COUNT 177 K/uL (130-400); RED CELL DISTRIBUTION WIDTH CV 13.1 % (11.5-14.5); RED CELL DISTRIBUTION WIDTH SD 44.9 fL (36.4-46.3); WHITE BLOOD COUNT 6.75 K/uL (4.8-10.8)
[2017-11-29 13:22] LABS: ALBUMIN 3.4 gm/dl (3.4-5.0); BLOOD UREA NITROGEN 21 mg/dl (7-18); CALCIUM 8.8 mg/dl (8.5-10.1); CARBON DIOXIDE 26 mmol/L (21-32); CREATININE 1.73 mg/dl (0.60-1.40); GLUCOSE 87 mg/dl (70-99); PHOSPHORUS 2.9 mg/dl (2.5-4.9); SODIUM 135 mmol/L (136-145)
== END | disposition home or self-care (01) ==
LOC: C.LABBFT 08:12
PROVIDERS: ATTEND Internal Medicine Nephrology
DX: I12.9 Hypertensive chronic kidney disease with stage 1 through stage 4 chronic kidney disease, or unspecified chronic kidney disease (principal); N18.3 Chronic kidney disease, stage 3 (moderate); N25.81 Secondary hyperparathyroidism of renal origin; E55.9 Vitamin D deficiency, unspecified